=== PATIENT | female | born 1975 | race Caucasian/White ===

== ENCOUNTER 2017-02-10 15:00 | Emergency (ER) | payer SELFPAY ==
[~2017-02-10] VITALS: Ht 170.2 cm; Wt 80.0 kg
[~2017-02-10 15:00] MED LIST: VENTAER INH; Z.0.NO CURRENT MEDS; ZITH250T PO
[2017-02-10 15:02] VITALS: BP 116/88; PULSE 130; RESP 20; TEMP 98.7; O2SAT 100
--- NOTE | 2017-02-10 16:30 | PD ---
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 States she has history of fibroid and has pain during her menstruation for 5 years. She went to [facility] in January and had MRI which she said they did not see any fibroid. Pt also with c/o bilateral leg numbness for 1 day as well as pain in her right buttocks radiating down right leg. States she has had bilateral lower ext weakness for 1 week and is unable to walk herself except with her 's support. States she has not had a bowel movement for 5 days and have difficulty urinating. Denies any fever, IVDA , trauma, chest pain, sob, n/v. PFSH Past Medical History Heart Rhythm Problems: No Cardiac Catheterization: No High Cholesterol: No Congestive Heart Failure: No Diabetes: No Immunizations Current: No ?: Not : 5 Para: 3 Miscarriage: 1 : 0 Dilation and Curettage (D&C): Yes (X2) Tubal Ligation: Yes Past Surgical History Coronary Artery Bypass Graft: No Gynecologic Surgery: Yes (LAPAROSCOPY) Social History Alcohol Use: No Tobacco Use: No Substance Use: No Allergies-Medications (Allergen,Severity, Reaction): Coded Allergies: No Known Allergies (Unverified , 02/10/17) Reported Meds & Prescriptions Reported Meds & Active Scripts Active Medrol Dosepak (Methylprednisolone) 4 Mg Dspk 4 Mg PO DIRECTED Per Pharmacist direction Lortab (Hydrocodone-Acetaminophen) 7.5-325 Mg Tab 1 Tab PO Q6H PRN Flexeril (Cyclobenzaprine HCl) 10 Mg Tab 10 Mg PO TID Review of Systems Except as stated in HPI: all other systems reviewed are Neg Physical Exam Narrative GENERAL: 41yo F in moderate distress. SKIN: Focused skin assessment warm/dry. HEAD: Atraumatic. Normocephalic. EYES: Pupils equal and round. No scleral icterus. No injection or drainage. ENT: No nasal bleeding or discharge. Mucous membranes pink and moist. NECK: Trachea midline. No JVD. CARDIOVASCULAR: Regular rate and rhythm. No murmur appreciated. RESPIRATORY: No accessory muscle use. Clear to auscultation. Breath sounds equal bilaterally. GASTROINTESTINAL: Abdomen soft, diffuse ttp. BACK: No midline thoracic or lumbar ttp. Sacral ttp. MUSCULOSKELETAL: No obvious deformities. No clubbing. No cyanosis. No edema. NEUROLOGICAL: Awake and alert. No obvious cranial nerve deficits. Pt unable to lift bilateral lower extremities against gravity, able to abduct and adduct. Decreased sensation from anterior thigh down bilaterally. Normal reflexes. RECTAL: Good rectal tone. +Stool felt. Data Data Last Documented VS Vital Signs Date Time Temp Pulse Resp B/P Pulse Ox O2 Delivery O2 Flow Rate FiO2 02/10/17 22:15 80 16 125/81 98 Room Air 02/10/17 15:02 98.7 Orders Complete Blood Count With Diff (02/10/17 16:02) Basic Metabolic Panel (Bmp) (02/10/17 16:02) Bhcg Screen Qualitative (02/10/17 16:02) Ct Abd/Pel W Iv Contrast(Rout) (02/10/17 ) Mri L Spine W/O Contrast (02/10/17 ) Ketorolac Inj (Toradol Inj) (02/10/17 18:15) Iohexol 350 Inj (Omnipaque 350 Inj) (02/10/17 18:46) Mri C Spine W/O Contrast (02/10/17 ) Mri T Spine W/O Contrast (02/10/17 ) Labs Laboratory Tests Test 02/10/17 16:00 White Blood Count 6.6 TH/MM3 Red Blood Count 5.53 MIL/MM3 Hemoglobin 16.1 GM/DL Hematocrit 48.1 % Mean Corpuscular Volume 86.9 FL Mean Corpuscular Hemoglobin 29.1 PG Mean Corpuscular Hemoglobin 33.4 % Concent Red Cell Distribution Width 13.2 % Platelet Count 328 TH/MM3 Mean Platelet Volume 8.3 FL Neutrophils (%) (Auto) 50.2 % Lymphocytes (%) (Auto) 37.3 % Monocytes (%) (Auto) 9.8 % Eosinophils (%) (Auto) 2.2 % Basophils (%) (Auto) 0.5 % Neutrophils # (Auto) 3.3 TH/MM3 Lymphocytes # (Auto) 2.5 TH/MM3 Monocytes # (Auto) 0.7 TH/MM3 Eosinophils # (Auto) 0.1 TH/MM3 Basophils # (Auto) 0.0 TH/MM3 CBC Comment DIFF FINAL Differential Comment Sodium Level 139 MEQ/L Potassium Level 3.3 MEQ/L Chloride Level 104 MEQ/L Carbon Dioxide Level 24.5 MEQ/L Anion Gap 11 MEQ/L Blood Urea Nitrogen 13 MG/DL Creatinine 0.87 MG/DL Estimat Glomerular Filtration 72 ML/MIN Rate Random Glucose 88 MG/DL Calcium Level 9.2 MG/DL Beta HCG, Qualitative LESS THAN 1 MIU/ML MDM Medical Decision Making Medical Screen Exam Complete: Yes Emergency Medical Condition: Yes Differential Diagnosis Anxiety vs. conversion disorder vs. cord compression vs. constipation vs. colitis vs. uterine fibroid Narrative Course 41yo F presents to the ED with multiple complaints. HR was 80s when I evaluated the patient, unsure of the accuracy of the 130 documented in triage. States she has been having intermittent abdominal pain for 5 years. Labs reviewed, no leukocytosis. H/H elevated at 16.1/48.1. K: 3.3, replaced orally. negative. Pt with c/o bilateral lower ext weakness and decreased sensation. Also states she feels she has difficulty urinating and having bowel movement. MRI LS showed small focal central disc protrusion at L5- S1. Disc dehydration at L4-L5, L5-S1. All neural foramina are patent. Pt reevaluated at bedside and still with abdominal tenderness. Pt given toradol. Will still do CTa/p. I discussed with neurologist Dr. Haas and he recommend MRI cspine and tspine to r/o cord compression. Pt is unable to move her bilateral legs against gravity. Will sign out to next team to follow up CT and MRI and reevaluate. Diagnosis Primary Impression: Abdominal pain Qualified Code: R10.84 - Generalized abdominal pain Scripts Methylprednisolone Dosepak (Medrol Dosepak)4 Mg Dspk4 Mg PO DIRECTED #1 DSPK Per Pharmacist direction Prov:Jan Amezquita MD 02/10/17 Hydrocodone-Acetaminophen (Lortab)7.5-325 Mg Tab1 Tab PO Q6H PRN (PAIN) #20 TAB Prov:Jan Amezquita MD 02/10/17 Cyclobenzaprine (Flexeril)10 Mg Tab10 Mg PO TID #21 TAB Prov:Jan Amezquita MD 02/10/17 Noni Monte DO Feb 10, 2017 16:30
[2017-02-10 17:15] LABS: AUTOMATED NEUTROPHIL # 3.3 TH/MM3 (1.8-7.7); BASOPHIL % 0.5 % (0.0-2.0); EOSINOPHIL # 0.1 TH/MM3 (0-0.4); EOSINOPHIL % 2.2 % (0.0-4.0); HEMATOCRIT 48.1 % (35.0-46.0); HEMO FLAGS DIFF FINAL; LYMPH % 37.3 % (9.0-44.0); LYMPHOCYTE # 2.5 TH/MM3 (1.0-4.8); MEAN CELL VOLUME 86.9 FL (80.0-100.0); MEAN CORPUSCULAR HEMOGLOBIN 29.1 PG (27.0-34.0); MEAN CORPUSCULAR HGB CONC 33.4 % (32.0-36.0); MONO % 9.8 % (0.0-8.0); NEUT % 50.2 % (16.0-70.0); PLATELET COUNT 328 TH/MM3 (150-450); RED BLOOD COUNT 5.53 MIL/MM3 (4.00-5.30); RED CELL DISTRIBUTION WIDTH 13.2 % (11.6-17.2); WHITE BLOOD COUNT 6.6 TH/MM3 (4.0-11.0)
[2017-02-10 17:31] LABS: ANION GAP 11 MEQ/L (5-15); BICARBONATE 24.5 MEQ/L (21.0-32.0); BLOOD UREA NITROGEN 13 MG/DL (7-18); CHLORIDE 104 MEQ/L (98-107); GLOMERULAR FILTRATION RATE 72 ML/MIN (>89); POTASSIUM 3.3 MEQ/L (3.5-5.1); SODIUM (NA) 139 MEQ/L (136-145)
[2017-02-10 17:40] LABS: BHCG SCREEN QUALITATIVE LESS THAN 1 MIU/ML (0-5)
--- NOTE | 2017-02-10 17:47 | RADRPT ---
EXAM DATE/TIME: 02/10/2017 17:09 [facility] COMPARISON: No previous studies available for comparison. INDICATIONS : Pain. Lower back pain with numbness in legs. MEDICAL HISTORY : None. SURGICAL HISTORY : None. ENCOUNTER: Initial ACUITY: 1 week PAIN SCORE: 7/10 LOCATION: Back. TECHNIQUE: Multiplanar multisequence MRI of the lumbar spine was performed without contrast. FINDINGS: The most caudal appearing lumbar vertebra is numbered as L5. VERTEBRAE: Homogeneous signal. Normal alignment. Mild disc dehydration at L4-5 and L5-S1. No compression fractu res. No abnormal bone marrow edema in the vertebral bodies. CONUS: Normal level and configuration. T12-L1: The thecal sac has a normal diameter. No evidence of disc bulge or protrusion. The neural foramina are patent bilaterally. L1-L2: The thecal sac has a normal diameter. No evidence of disc bulge or protrusion. The neural foramina are patent bilaterally. L2-L3: The thecal sac has a normal diameter. No evidence of disc bulge or protrusion. The neural foramina are patent bilaterally. Bilateral facet arthritis. L3-L4: The thecal sac has a normal diameter. No evidence of disc bulge or protrusion. The neural foramina are patent bilaterally. L4-L5: The thecal sac has a normal diameter. No evidence of disc bulge or protrusion. The neural foramina are patent bilaterally. Facet arthritis. L5-S1: Focal small central disc protrusion. The neural foramina are patent bilaterally. Mild facet arthritis . CONCLUSION: 1. Small focal central disc protrusion at L5-S1. 2. Disc dehydration at L4-5 and L5-S1. 3. Bilateral facet arthritis at several levels. Siddharth Villarreal MD on February 10, 2017 at 17:43 Board Certified Radiologist. This report was verified electronically.
[2017-02-10] MEDS ORDERED: KETOROLAC TROMETHAMINE 30 MG/ML (IVP) VIAL IV PUSH ONE (18:15)
[2017-02-10] MEDS ORDERED: IOHEXOL 350 MG/ML 10 ML VIAL (for RAD DIAG) IV ONE (18:46)
--- NOTE | 2017-02-10 19:34 | RADRPT ---
EXAM DATE/TIME: 02/10/2017 18:40 [facility] COMPARISON: No previous studies available for comparison. INDICATIONS : Patient complains of abdominal pain, constipation and difficulty urinating. IV CONTRAST: 100 cc Omnipaque 350 (iohexol) IV ORAL CONTRAST: No oral contrast ingested. RADIATION DOSE: 10.05 CTDIvol (mGy) MEDICAL HISTORY : None SURGICAL HISTORY : Tubal ligation. ENCOUNTER: Initial ACUITY: 1 day PAIN SCALE: 9/10 LOCATION: lower quadrant TECHNIQUE: Volumetric scanning of the abdomen and pelvis was performed. Using automated exposure control and ad justment of the mA and/or kV according to patient size, radiation dose was kept as low as reasonably achievable to obtain optimal diagnostic quality images. DICOM format image data is available electro nically for review and comparison. FINDINGS: LOWER LUNGS: There is a large fluid density lesion in the left lower lung measuring 9 cm which extends into the me diastinum. This was mentioned on a prior CT thorax report in 2011 and believed to represent a large bronchogenic cyst. There is some adjacent atelectasis or consolidation in the lateral left lower talisha g. LIVER: Homogeneous density without lesion. There is no dilation of the biliary tree. No calcified gallston es. SPLEEN: 2.8 cm low density lesion in the anterior spleen with mean CT density 17 Hounsfield units and some pe ripheral calcification, probably representing an old hematoma. This also was mentioned on prior CT t horax report from 2011. There are 2 rounded low density lesions in the inferior spleen, anteriorly m easuring 4 mm and posterior measuring 9 mm, probably representing cysts. PANCREAS: Within normal limits. KIDNEYS: Normal in size and shape. There is no mass, stone or hydronephrosis. ADRENAL GLANDS: Within normal limits. VASCULAR: There is no aortic aneurysm. BOWEL/MESENTERY: No dilated loops of small or large bowel. The appendix is identified in the right lower quadrant, is normal in size, and the lumen contains gas. There are a few diverticula in the sigmoid colon. ABDOMINAL WALL: Within normal limits. RETROPERITONEUM: There is no lymphadenopathy. BLADDER: No wall thickening or mass. REPRODUCTIVE: Uterus is mildly anteverted. There is prominence to both adnexal regions. There is a prominent amou nt of free fluid in the right cul-de-sac which tracks into the right adnexa. INGUINAL: There is no lymphadenopathy or hernia. MUSCULOSKELETAL: Within normal limits for patient age. CONCLUSION: 1. Moderate amount of free fluid in the right cul-de-sac extending to the right adnexa. Mixed densit y to the adnexal structures bilaterally suggesting lateral ovarian cysts. 2. Focal area of subsegmental consolidation in the right lower lung adjacent to a large cystic area, probably representing a bronchogenic cyst which extended from the mediastinum in the left lower chest , which was noted on a prior CT scan in 2012. Eber Ojeda MD on February 10, 2017 at 19:23 Board Certified Radiologist. This report was verified electronically.
--- NOTE | 2017-02-10 21:45 | RADRPT ---
EXAM DATE/TIME: 02/10/2017 20:18 [facility] COMPARISON: No previous studies available for comparison. INDICATIONS : Cord compression. Back pain and weakness in bilateral legs. MEDICAL HISTORY : None. SURGICAL HISTORY : None. ENCOUNTER: Initial ACUITY: 1 week PAIN SCORE: 5/10 LOCATION: Back. TECHNIQUE: Multiplanar multisequence MRI of the thoracic spine was performed. FINDINGS: There is a large left pleural effusion. VERTEBRA: Normal vertebral body height. Homogeneous marrow signal. ALIGNMENT: Normal. CORD: Normal configuration. Located at T12-L1. T1-T2: Normal. T2-T3: The thecal sac has a normal diameter. No evidence of disc bulge or protrusion. T3-T4: Broad-based protrusion of the disc flattens the ventral margin of the thecal sac and there is loss of CSF ventral to the thoracic cord. T4-T5: The thecal sac has a normal diameter. No evidence of disc bulge or protrusion. T5-T6: The thecal sac has a normal diameter. No evidence of disc bulge or protrusion. T6-T7: The thecal sac has a normal diameter. No evidence of disc bulge or protrusion. T7-T8: The thecal sac has a normal diameter. No evidence of disc bulge or protrusion. T8-T9: The thecal sac has a normal diameter. No evidence of disc bulge or protrusion. T9-T10: The thecal sac has a normal diameter. No evidence of disc bulge or protrusion. T10-T11: The thecal sac has a normal diameter. No evidence of disc bulge or protrusion. T11-T12: The thecal sac has a normal diameter. No evidence of disc bulge or protrusion. T12-L1: The thecal sac has a normal diameter. No evidence of disc bulge or protrusion. CONCLUSION: 1. Broad-based protrusion of the T3-4 disc without cord compression. 2. Large left pleural effusion. Eber Ojeda MD on February 10, 2017 at 21:41 Board Certified Radiologist. This report was verified electronically.
--- NOTE | 2017-02-10 21:51 | RADRPT ---
EXAM DATE/TIME: 02/10/2017 20:18 [facility] COMPARISON: No previous studies available for comparison. INDICATIONS : Cord compression. Numbness in bilateral legs. MEDICAL HISTORY : None. SURGICAL HISTORY : None. ENCOUNTER: Initial ACUITY: 1 week PAIN SCORE: 6/10 LOCATION: Back. TECHNIQUE: Multiplanar, multisequence MRI examination of the cervical spine was performed. FINDINGS: There is reversal of the cervical lordosis from C2-C4. Vertebral body height is maintained. There i s normal signal in the marrow of the cervical vertebral bodies and preservation of vertebral body hei ght. Posterior fossa structures are grossly intact. The cervical cord is normal in dimension and sidhu s normal signal characteristics. C2-C3: The thecal sac has a normal configuration. There is no evidence of disc herniation or spinal canal s tenosis. The neural foramina are patent bilaterally. C3-C4: The thecal sac has a normal configuration. There is no evidence of disc herniation or spinal canal s tenosis. The neural foramina are patent bilaterally. C4-C5: Left-sided uncovertebral joint hypertrophy flattens the ventral margin thecal sac and causes moderate severity bony neural foraminal stenosis. No evidence of disc bulge or protrusion. The neural steven en on the right remains patent. C5-C6: Mild broad-based bulging of the disc flattens the ventral margin of the thecal sac. No focal disc pr otrusion. The neural foramina are patent. C6-C7: The thecal sac has a normal configuration. There is no evidence of disc herniation or spinal canal s tenosis. The neural foramina are patent bilaterally. C7-T1: The thecal sac has a normal configuration. There is no evidence of disc herniation or spinal canal s tenosis. The neural foramina are patent bilaterally. CONCLUSION: 1. No evidence of cord compression. 2. Left sided bony neural foraminal stenosis due to uncovertebral joint hypertrophy. 3. Mild disc bulging at C5-6. Eber Ojeda MD on February 10, 2017 at 21:43 Board Certified Radiologist. This report was verified electronically.
[2017-02-10 22:15] VITALS: BP 125/81; PULSE 80; RESP 16; O2SAT 98
[2017-02-10] MEDS ORDERED: MEDR4PAK PO (22:58)
[2017-02-10] MEDS ORDERED: CYCL1TAB29 PO (22:58)
[2017-02-10] MEDS ORDERED: HYDR-3534 PO (22:58)
--- NOTE | 2017-02-10 23:00 | PD ---
Physical Exam Narrative GENERAL: SKIN: Warm and dry. HEAD: Atraumatic. Normocephalic. EYES: Pupils equal and round. No scleral icterus. No injection or drainage. ENT: No nasal bleeding or discharge. Mucous membranes pink and moist. NECK: Trachea midline. No JVD. CARDIOVASCULAR: Regular rate and rhythm. RESPIRATORY: No accessory muscle use. Clear to auscultation. Breath sounds equal bilaterally. GASTROINTESTINAL: Abdomen soft, non-tender, nondistended. Hepatic and splenic margins not palpable. MUSCULOSKELETAL: Extremities without clubbing, cyanosis, or edema. No obvious deformities. NEUROLOGICAL: Awake and alert. No obvious cranial nerve deficits. Motor grossly within normal limits. Five out of 5 muscle strength in the arms and legs. Normal speech. PT HAD IMPROVEMENT OVER NEARLY 7HRS OF ED OBSERVATION TO NORMAL NEURO EXAM. PSYCHIATRIC: Appropriate mood and affect; insight and judgment normal. Data Data Last Documented VS Vital Signs Date Time Temp Pulse Resp B/P Pulse Ox O2 Delivery O2 Flow Rate FiO2 02/10/17 22:15 80 16 125/81 98 Room Air 02/10/17 15:02 98.7 Orders Complete Blood Count With Diff (02/10/17 16:02) Basic Metabolic Panel (Bmp) (02/10/17 16:02) Bhcg Screen Qualitative (02/10/17 16:02) Ct Abd/Pel W Iv Contrast(Rout) (02/10/17 ) Mri L Spine W/O Contrast (02/10/17 ) Ketorolac Inj (Toradol Inj) (02/10/17 18:15) Iohexol 350 Inj (Omnipaque 350 Inj) (02/10/17 18:46) Mri C Spine W/O Contrast (02/10/17 ) Mri T Spine W/O Contrast (02/10/17 ) Labs Laboratory Tests Test 02/10/17 16:00 White Blood Count 6.6 TH/MM3 Red Blood Count 5.53 MIL/MM3 Hemoglobin 16.1 GM/DL Hematocrit 48.1 % Mean Corpuscular Volume 86.9 FL Mean Corpuscular Hemoglobin 29.1 PG Mean Corpuscular Hemoglobin 33.4 % Concent Red Cell Distribution Width 13.2 % Platelet Count 328 TH/MM3 Mean Platelet Volume 8.3 FL Neutrophils (%) (Auto) 50.2 % Lymphocytes (%) (Auto) 37.3 % Monocytes (%) (Auto) 9.8 % Eosinophils (%) (Auto) 2.2 % Basophils (%) (Auto) 0.5 % Neutrophils # (Auto) 3.3 TH/MM3 Lymphocytes # (Auto) 2.5 TH/MM3 Monocytes # (Auto) 0.7 TH/MM3 Eosinophils # (Auto) 0.1 TH/MM3 Basophils # (Auto) 0.0 TH/MM3 CBC Comment DIFF FINAL Differential Comment Sodium Level 139 MEQ/L Potassium Level 3.3 MEQ/L Chloride Level 104 MEQ/L Carbon Dioxide Level 24.5 MEQ/L Anion Gap 11 MEQ/L Blood Urea Nitrogen 13 MG/DL Creatinine 0.87 MG/DL Estimat Glomerular Filtration 72 ML/MIN Rate Random Glucose 88 MG/DL Calcium Level 9.2 MG/DL Beta HCG, Qualitative LESS THAN 1 MIU/ML MDM Medical Record Reviewed: Yes Supervised Visit with EDGARDO: No Narrative Course MRI SHOWED NO CENTRAL CORD COMPRESSION ON CERV/THORACIC/LUMBAR AT THIS POINT, PT DOES HAVE OVARIAN CYST AND ESSENTIALLY PERIPHERAL L4-S1 RADICULOPATHY ACCOUNTING FOR PAIN Diagnosis Primary Impression: RADICULOPATHY Additional Impression: OVARIAN CYST Referrals: Anila Will MD, Rohit Kumar MD Med/Other Pt SpecificInfo: Prescription(s) given Scripts Methylprednisolone Dosepak (Medrol Dosepak)4 Mg Dspk4 Mg PO DIRECTED #1 DSPK Per Pharmacist direction Prov:Jan Amzequita MD 02/10/17 Hydrocodone-Acetaminophen (Lortab)7.5-325 Mg Tab1 Tab PO Q6H PRN (PAIN) #20 TAB Prov:Jan Amezquita MD 02/10/17 Cyclobenzaprine (Flexeril)10 Mg Tab10 Mg PO TID #21 TAB Prov:Jan Amezquita MD 02/10/17 Disposition: 01 DISCHARGE HOME Condition: Stable Jan Amezquita MD Feb 10, 2017 23:00
== END 2017-02-11 00:42 | disposition home or self-care (01) ==
LOC: NEPC 15:00
DX: M54.17 Radiculopathy, lumbosacral region (principal); N83.202 Unspecified ovarian cyst, left side; N83.201 Unspecified ovarian cyst, right side
CPT/HCPCS: 72141; 72146; 72148; 74177; 80048; 84703; 85025; 96374; 99285; J1885; Q9967